=== PATIENT | male | born 1955 | race Caucasian/White ===

== ENCOUNTER 2019-01-05 11:01 | Observation (INO) | payer OTHER ==
[2019-01-05] MEDS ORDERED: Sodium Chloride 0.9% 10 ML Syringe FLUSH PRN (11:29)
[2019-01-05] MEDS ORDERED: Sodium Chloride 0.9% 1,000 ML IV ONE ×2 (11:33→12:58)
--- NOTE | 2019-01-05 11:57 | EDM.PDOC ---
ED HPI GENERAL MEDICAL PROBLEM - General Chief Complaint: Syncope Stated Complaint: LIGHTHEADED, BLANK LOOK Time Seen by Provider: 01/05/19 11:11 Source of Information: Reports: Patient History Limitations: Reports: No Limitations - History of Present Illness INITIAL COMMENTS - FREE TEXT/NARRATIVE: 63 y/o M with hx peripheral vascular disease s/p lower extremity arterial bypass a few months ago (outside hospital, patient doesn't know details) now on plavix, presents with dizziness. [place] fine yesterday. This morning while working had episode of feeling dizzy, looked pale to his co-worker, and near- syncope. He had about 3 similar episodes. He did not lose consciousness. He remembers the details. He still feels a bit lightheaded and unsteady on his feet. Took his usual meds today which include amlodipine 5mg, no additional anti -hypertensives. No diuretics. Denies vomiting/diarrhea, pain, headache, CP/SOB, lower extremity swelling. States he has had trouble with low blood pressure previously. - Related Data Allergies Allergy/AdvReac Type Severity Reaction Status Date / Time Penicillins Allergy Seizure Verified 01/05/19 11:18 simvastatin Allergy Rash Verified 01/05/19 11:18 Home Meds: Home Meds Acetaminophen [Pain Relief Extra Strength] 1,000 mg PO ASDIRECTED PRN 01/05/19 [ History] Aspirin [Halfprin] 81 mg PO DAILY 01/05/19 [History] Cholecalciferol (Vitamin D3) [Vitamin D3] 1,000 unit PO DAILY 01/05/19 [History] Clopidogrel [Plavix] 75 mg PO DAILY 01/05/19 [History] Diclofenac Sodium 1 applic TP QID PRN 01/05/19 [History] Meclizine [Antivert] 25 mg PO TID PRN 01/05/19 [History] Multivitamin with Minerals [Multiple Vitamin] 1 tab PO DAILY 01/05/19 [History] amLODIPine Besylate [Amlodipine Besylate] 5 mg PO DAILY 01/05/19 [History] atorvaSTATin Calcium [Atorvastatin Calcium] 40 mg PO BEDTIME 01/05/19 [History] Past Medical History Cardiovascular History: Reports: High Cholesterol, Hypertension, PVD - Past Surgical History Cardiovascular Surgical History: Reports: Vascular Surgery Neurological Surgical History: Reports: Lumbar Spine, Spinal Fusion Social & Family History - Tobacco Use Smoking Status *Q: Current Every Day Smoker Years of Tobacco use: 47 Packs/Tins Daily: 0.5 - Caffeine Use Caffeine Use: Reports: Coffee, Soda - Recreational Drug Use Recreational Drug Use: Yes Drug Use in Last 12 Months: Yes Recreational Drug Type: Reports: Marijuana/Hashish Recreational Drug Use Frequency: Rarely ED ROS GENERAL - Review of Systems Review Of Systems: See Below Constitutional: Denies: Fever HEENT: Reports: No Symptoms Respiratory: Denies: Shortness of Breath Cardiovascular: Denies: Chest Pain Endocrine: Reports: No Symptoms GI/Abdominal: Denies: Abdominal Pain : Reports: No Symptoms Musculoskeletal: Reports: No Symptoms Skin: Reports: No Symptoms Neurological: Reports: Dizziness Psychiatric: Reports: No Symptoms Hematologic/Lymphatic: Reports: No Symptoms ED EXAM, DIZZINESS - Physical Exam Exam: See Below Exam Limited By: No Limitations General Appearance: Alert, WD/WN, No Apparent Distress Eye Exam: Bilateral Eye: EOMI, Other (no nystagmus) Ears: Normal External Exam Nose: Normal Inspection Throat/Mouth: Normal Inspection, Normal Oropharynx, Normal Voice, No Airway Compromise Head Exam: Atraumatic, Normocephalic Neck: Normal Inspection Respiratory/Chest: No Respiratory Distress, Lungs Clear, Normal Breath Sounds Cardiovascular: Normal Peripheral Pulses, Regular Rate, Rhythm, No Edema, No Murmur GI/Abdominal: Normal Bowel Sounds, Soft, Non-Tender. No: Rebound Neurological: Alert, Normal Mood/Affect, Normal Dorsiflexion, CN II-XII Intact, Normal Plantar Flexion, Normal Gait, No Motor/Sensory Deficits, Oriented x 3 Extremities: Normal Inspection Psychiatric: Normal Affect, Normal Mood Skin Exam: Warm, Dry, Intact, Normal Color, No Rash Course - Vital Signs Last Recorded V/S: Last Vital Signs Temp 36.6 C 01/05/19 11:11 Pulse 57 L 01/05/19 12:00 Resp 18 01/05/19 12:00 BP 84/59 L 01/05/19 12:00 Pulse Ox 98 01/05/19 12:00 - Orders/Labs/Meds Orders: Active Orders 24 hr Category Date Time Status EKG 12 Lead [EKG Documentation Completion] [RC] STAT Care 01/05/19 11:53 Active Glucose [Blood Glucose Check, Bedside] [RC] ONETIME Care 01/05/19 11:22 Active Peripheral IV Care [RC] . DIRECTED Care 01/05/19 11:29 Active Peripheral IV Care [RC] . DIRECTED Care 01/05/19 11:29 Active Sodium Chloride 0.9% [Saline Flush] Med 01/05/19 11:29 Active 10 ml FLUSH ASDIRECTED PRN Peripheral IV Insertion Adult [OM.PC] Routine Oth 01/05/19 11:29 Ordered Medication Orders Sodium Chloride (Saline Flush) 10 ml FLUSH ASDIRECTED PRN PRN Reason: Keep Vein Open Last Admin: 01/05/19 12:00 Dose: 10 ml Labs: Laboratory Tests 01/05/19 01/05/19 01/05/19 Range/Units 12:12 12:12 12:12 WBC 13.91 H (4.23-9.07) K/mm3 RBC 4.31 L (4.63-6.08) M/mm3 Hgb 14.4 (13.7-17.5) gm/dl Hct 41.1 (40.1-51.0) % MCV 95.4 H (79.0-92.2) fl MCH 33.4 H (25.7-32.2) pg MCHC 35.0 (32.2-35.5) g/dl RDW Std Deviation 45.4 H (35.1-43.9) fL Plt Count 253 (163-337) K/mm3 MPV 8.9 L (9.4-12.3) fl Neut % (Auto) 80.5 H (34.0-67.9) % Lymph % (Auto) 9.1 L (21.8-53.1) % Chambers % (Auto) 9.6 (5.3-12.2) % Eos % (Auto) 0.6 L (0.8-7.0) Baso % (Auto) 0.2 (0.1-1.2) % Neut # (Auto) 11.20 H (1.78-5.38) K/mm3 Lymph # (Auto) 1.26 L (1.32-3.57) K/mm3 Chambers # (Auto) 1.33 H (0.30-0.82) K/mm3 Eos # (Auto) 0.09 (0.04-0.54) K/mm3 Baso # (Auto) 0.03 (0.01-0.08) K/mm3 Manual Slide Review Abnormal smear PT 10.6 (9.7-12.0) SECONDS INR 0.97 Sodium 138 (136-145) mEq/L Potassium 5.5 H (3.5-5.1) mEq/L Chloride 105 (98-107) mEq/L Carbon Dioxide 24 (21-32) mEq/L Anion Gap 14.5 (5-15) BUN 25 H (7-18) mg/dL Creatinine 1.8 H (0.7-1.3) mg/dL Est Cr Clr Drug Dosing 41.17 mL/min Estimated GFR (MDRD) 38 (>60) mL/min BUN/Creatinine Ratio 13.9 L (14-18) Glucose 83 (80-115) mg/dL POC Glucose (80-115) mg/dL Calcium 9.5 (8.5-10.1) mg/dL Magnesium 2.2 (1.8-2.4) mg/dl Total Bilirubin 0.3 (0.2-1.0) mg/dL AST 23 (15-37) U/L ALT 29 (16-63) U/L Alkaline Phosphatase 99 (46-116) U/L Troponin I < 0.017 (0.00-0.056) ng/mL Total Protein 7.2 (6.4-8.2) g/dl Albumin 3.8 (3.4-5.0) g/dl Globulin 3.4 gm/dL Albumin/Globulin Ratio 1.1 (1-2) Urine Color (Yellow) Urine Appearance (Clear) Urine pH (5.0-8.0) Ur Specific Sidney (1.005-1.030) Urine Protein (Negative) Urine Glucose (UA) (Negative) Urine Ketones (Negative) Urine Occult Blood (Negative) Urine Nitrite (Negative) Urine Bilirubin (Negative) Urine Urobilinogen (0.2-1.0) Ur Leukocyte Esterase (Negative) Urine RBC (0-5) /hpf Urine WBC (0-5) /hpf Ur Squamous Epith Cells (0-5) /hpf Urine Bacteria (FEW) /hpf Urine Mucus (FEW) /hpf 01/05/19 01/05/19 Range/Units 12:24 13:43 WBC (4.23-9.07) K/mm3 RBC (4.63-6.08) M/mm3 Hgb (13.7-17.5) gm/dl Hct (40.1-51.0) % MCV (79.0-92.2) fl MCH (25.7-32.2) pg MCHC (32.2-35.5) g/dl RDW Std Deviation (35.1-43.9) fL Plt Count (163-337) K/mm3 MPV (9.4-12.3) fl Neut % (Auto) (34.0-67.9) % Lymph % (Auto) (21.8-53.1) % Chambers % (Auto) (5.3-12.2) % Eos % (Auto) (0.8-7.0) Baso % (Auto) (0.1-1.2) % Neut # (Auto) (1.78-5.38) K/mm3 Lymph # (Auto) (1.32-3.57) K/mm3 Chambers # (Auto) (0.30-0.82) K/mm3 Eos # (Auto) (0.04-0.54) K/mm3 Baso # (Auto) (0.01-0.08) K/mm3 Manual Slide Review PT (9.7-12.0) SECONDS INR Sodium (136-145) mEq/L Potassium (3.5-5.1) mEq/L Chloride (98-107) mEq/L Carbon Dioxide (21-32) mEq/L Anion Gap (5-15) BUN (7-18) mg/dL Creatinine (0.7-1.3) mg/dL Est Cr Clr Drug Dosing mL/min Estimated GFR (MDRD) (>60) mL/min BUN/Creatinine Ratio (14-18) Glucose (80-115) mg/dL POC Glucose 76 L (80-115) mg/dL Calcium (8.5-10.1) mg/dL Magnesium (1.8-2.4) mg/dl Total Bilirubin (0.2-1.0) mg/dL AST (15-37) U/L ALT (16-63) U/L Alkaline Phosphatase (46-116) U/L Troponin I (0.00-0.056) ng/mL Total Protein (6.4-8.2) g/dl Albumin (3.4-5.0) g/dl Globulin gm/dL Albumin/Globulin Ratio (1-2) Urine Color Yellow (Yellow) Urine Appearance Clear (Clear) Urine pH 7.0 (5.0-8.0) Ur Specific Sidney 1.015 (1.005-1.030) Urine Protein Negative (Negative) Urine Glucose (UA) Negative (Negative) Urine Ketones Negative (Negative) Urine Occult Blood Negative (Negative) Urine Nitrite Negative (Negative) Urine Bilirubin Negative (Negative) Urine Urobilinogen 0.2 (0.2-1.0) Ur Leukocyte Esterase Negative (Negative) Urine RBC 0-5 (0-5) /hpf Urine WBC 0-5 (0-5) /hpf Ur Squamous Epith Cells 0-5 (0-5) /hpf Urine Bacteria Few (FEW) /hpf Urine Mucus Few (FEW) /hpf Meds: Medications Generic Name Dose Route Start Last Admin Trade Name Liz PRN Reason Stop Dose Admin Sodium Chloride 10 ml 01/05/19 11:29 01/05/19 12:00 Saline Flush FLUSH 10 ml ASDIRECTED PRN Administration Keep Vein Open Discontinued Medications Generic Name Dose Route Start Last Admin Trade Name Frejosef PRN Reason Stop Dose Admin Sodium Chloride 1,000 mls @ 1,000 mls/hr 01/05/19 11:33 01/05/19 12:00 Normal Saline IV 01/05/19 12:32 1,000 mls/hr ONETIME ONE Administration Sodium Chloride 1,000 mls @ 1,000 mls/hr 01/05/19 12:58 01/05/19 13:39 Normal Saline IV 01/05/19 13:57 1,000 mls/hr ONETIME ONE Administration - Re-Assessments/Exams Free Text/Narrative Re-Assessment/Exam: 01/05/19 11:56 EKG shows NSR, normal intervals, no evidence of acute ischemia or arrhythmia. BP 90's over 50's. Labs pending. CXR shows no acute abnormality. 01/05/19 14:13 Patient had persistently low BP for the first two hours of his ED stay with SBP as low as 84. Improved after 1.5 L NS to approx 100/58. He still feels generally poorly. Labs show LETA with Creatinine 1.8, unknown baseline. K+mildly elevated at 5.5. WBC elevated at 14. He has no signs or symptoms of infection and no fever or tachycardia. He may be overmedicated - however, given persistence of hypotension, presumably new renal insufficiency, will admit to obs. Discussed with Dr. Nava who will eval him for admission. 01/05/19 14:17 01/05/19 14:19 Departure - Departure Time of Disposition: 14:18 Disposition: Refer to Observation Clinical Impression: Pre-syncope, Renal insufficiency Hypotension Qualifiers: Hypotension type: other hypotension type Qualified Code(s): I95.89 - Other hypotension - Discharge Information Referrals: Pearl Schreiber MD [Primary Care Provider] - Forms: ED Department Discharge - My Orders Last 24 Hours: My Active Orders 01/05/19 11:22 Glucose [Blood Glucose Check, Bedside] [RC] ONETIME 01/05/19 11:29 Peripheral IV Care [RC] . DIRECTED Peripheral IV Care [RC] . DIRECTED Sodium Chloride 0.9% [Saline Flush] 10 ml FLUSH ASDIRECTED PRN Peripheral IV Insertion Adult [OM.PC] Routine 01/05/19 11:53 EKG 12 Lead [EKG Documentation Completion] [RC] STAT - Assessment/Plan Last 24 Hours: My Active Orders 01/05/19 11:22 Glucose [Blood Glucose Check, Bedside] [RC] ONETIME 01/05/19 11:29 Peripheral IV Care [RC] . DIRECTED Peripheral IV Care [RC] . DIRECTED Sodium Chloride 0.9% [Saline Flush] 10 ml FLUSH ASDIRECTED PRN Peripheral IV Insertion Adult [OM.PC] Routine 01/05/19 11:53 EKG 12 Lead [EKG Documentation Completion] [RC] STAT
--- NOTE | 2019-01-05 12:51 | CR ---
Chest: Two views of the chest were obtained. Comparison: Prior chest x-ray of 03/12/15. Heart size and mediastinum are normal. Lungs are clear with no acute parenchymal change. Bony structures appear within normal limits for the patient's age. Impression: 1. Nothing acute is appreciated on two-view chest x-ray. Diagnostic code #1
--- NOTE | 2019-01-05 16:31 | PCM.HP.2 ---
H&P History of Present Illness - General Date of Service: 01/05/19 Admit Problem/Dx: Admission Diagnosis/Problem Admission Diagnosis/Problem Pre-syncope - History of Present Illness Initial Comments - Free Text/Narative: This is a 63-year old male HTN and DLD who came to the ED for near syncopal episode. Was outside with a friend spreading gravel for approximately 1 hour, had a cigarrete, walked a couple of steps Lightheaded + sweating + cold+ clammy Sat down in front bumbper waiting for it to pass, 15 minutes later felt better, when he went to stand up felt the same way, total time 45 min-1hr. Was brought to the ED by , still feeling weak. This has not happened before, similar symptoms with adjustments of BP meds. Did not have breakfast today, no drink, not taken meds. Positive for hand shaking, cold and clammy. Denies chest pain, palpitations, shortness of breath, headaches, fall, LOC, incontinence bowel or urinary. Increased fatigue in the past couple of weeks. - Related Data Allergies/Adverse Reactions: Allergies Allergy/AdvReac Type Severity Reaction Status Date / Time Penicillins Allergy Seizure Verified 01/05/19 15:49 simvastatin Allergy Rash Verified 01/05/19 15:49 Home Medications: Home Meds Acetaminophen [Pain Relief Extra Strength] 1,000 mg PO ASDIRECTED PRN 01/05/19 [ History] Aspirin [Halfprin] 81 mg PO BEDTIME 01/05/19 [History] Cholecalciferol (Vitamin D3) [Vitamin D3] 1,000 unit PO DAILY 01/05/19 [History] Clopidogrel [Plavix] 75 mg PO DAILY 01/05/19 [History] Diclofenac Sodium 1 applic TP QID PRN 01/05/19 [History] Meclizine [Antivert] 25 mg PO TID PRN 01/05/19 [History] Multivitamin with Minerals [Multiple Vitamin] 1 tab PO DAILY 01/05/19 [History] amLODIPine Besylate [Amlodipine Besylate] 5 mg PO DAILY 01/05/19 [History] atorvaSTATin Calcium [Atorvastatin Calcium] 40 mg PO BEDTIME 01/05/19 [History] Past Medical History Cardiovascular History: Reports: High Cholesterol, Hypertension, PVD Respiratory History: Reports: Sleep Apnea Gastrointestinal History: Reports: Colon Polyp Genitourinary History: Reports: BPH Musculoskeletal History: Reports: Back Pain, Chronic, Osteoarthritis Neurological History: Reports: Vertigo - Past Surgical History Cardiovascular Surgical History: Reports: Vascular Surgery Neurological Surgical History: Reports: Lumbar Spine, Spinal Fusion Social & Family History - Tobacco Use Smoking Status *Q: Current Every Day Smoker Years of Tobacco use: 47 Packs/Tins Daily: 0.5 - Caffeine Use Caffeine Use: Reports: Coffee, Soda - Recreational Drug Use Recreational Drug Use: Yes Drug Use in Last 12 Months: Yes Recreational Drug Type: Reports: Marijuana/Hashish Recreational Drug Use Frequency: Rarely H&P Review of Systems - Review of Systems: Review Of Systems: See Below General: Reports: Weakness, Fatigue, Diaphoresis. Denies: Fever, Chills, Malaise, Decreased Appetite HEENT: Denies: Dysphasia, Eye Pain, Glasses, Hearing Changes, Rhinitis, Post Nasal Drip, Sinus Congestion, Sore Throat, Vertigo Pulmonary: Denies: Shortness of Breath, Wheezing, Cough, Sputum, Hemoptysis Cardiovascular: Reports: Lightheadedness. Denies: Chest Pain, Palpitations, Dyspnea on Exertion, Orthopnea, PND, Edema Gastrointestinal: Denies: Abdominal Pain, Anorexia, Constipation, Diarrhea, Decreased Appetite, Distension, Flatus, Hematemesis, Hematochezia Genitourinary: Denies: Dysuria, Frequency, Burning, Pain, Urgency Musculoskeletal: Denies: Neck Pain, Shoulder Pain, Arm Pain, Back Pain, Hand Pain, Leg Pain, Foot Pain, Muscle Pain Skin: Reports: Diaphoresis. Denies: Cyanosis, Jaundice, Mottled, Pallor Psychiatric: Denies: Confusion, Depression, Anxiety Neurological: Reports: Dizziness. Denies: Confusion, Headache, Numbness, Paresthesia, Seizure, Syncope Exam - Vital Signs Vital Signs: Last Vital Signs Temp 36.4 C 01/05/19 15:23 Pulse 61 01/05/19 15:23 Resp 16 01/05/19 15:23 BP 121/61 01/05/19 15:23 Pulse Ox 99 01/05/19 15:23 Weight: 90.718 kg - Patient Data Lab Results Last 24 hrs: Laboratory Results - last 24 hr 01/05/19 01/05/19 01/05/19 Range/Units 12:12 12:12 12:12 WBC 13.91 H (4.23-9.07) K/mm3 RBC 4.31 L (4.63-6.08) M/mm3 Hgb 14.4 (13.7-17.5) gm/dl Hct 41.1 (40.1-51.0) % MCV 95.4 H (79.0-92.2) fl MCH 33.4 H (25.7-32.2) pg MCHC 35.0 (32.2-35.5) g/dl RDW Std Deviation 45.4 H (35.1-43.9) fL Plt Count 253 (163-337) K/mm3 MPV 8.9 L (9.4-12.3) fl Neut % (Auto) 80.5 H (34.0-67.9) % Lymph % (Auto) 9.1 L (21.8-53.1) % Adams % (Auto) 9.6 (5.3-12.2) % Eos % (Auto) 0.6 L (0.8-7.0) Baso % (Auto) 0.2 (0.1-1.2) % Neut # (Auto) 11.20 H (1.78-5.38) K/mm3 Lymph # (Auto) 1.26 L (1.32-3.57) K/mm3 Adams # (Auto) 1.33 H (0.30-0.82) K/mm3 Eos # (Auto) 0.09 (0.04-0.54) K/mm3 Baso # (Auto) 0.03 (0.01-0.08) K/mm3 Manual Slide Review Abnormal smear PT 10.6 (9.7-12.0) SECONDS INR 0.97 Sodium 138 (136-145) mEq/L Potassium 5.5 H (3.5-5.1) mEq/L Chloride 105 (98-107) mEq/L Carbon Dioxide 24 (21-32) mEq/L Anion Gap 14.5 (5-15) BUN 25 H (7-18) mg/dL Creatinine 1.8 H (0.7-1.3) mg/dL Est Cr Clr Drug Dosing 41.17 mL/min Estimated GFR (MDRD) 38 (>60) mL/min BUN/Creatinine Ratio 13.9 L (14-18) Glucose 83 (80-115) mg/dL POC Glucose (80-115) mg/dL Calcium 9.5 (8.5-10.1) mg/dL Magnesium 2.2 (1.8-2.4) mg/dl Total Bilirubin 0.3 (0.2-1.0) mg/dL AST 23 (15-37) U/L ALT 29 (16-63) U/L Alkaline Phosphatase 99 (46-116) U/L Troponin I < 0.017 (0.00-0.056) ng/mL Total Protein 7.2 (6.4-8.2) g/dl Albumin 3.8 (3.4-5.0) g/dl Globulin 3.4 gm/dL Albumin/Globulin Ratio 1.1 (1-2) Urine Color (Yellow) Urine Appearance (Clear) Urine pH (5.0-8.0) Ur Specific [place] (1.005-1.030) Urine Protein (Negative) Urine Glucose (UA) (Negative) Urine Ketones (Negative) Urine Occult Blood (Negative) Urine Nitrite (Negative) Urine Bilirubin (Negative) Urine Urobilinogen (0.2-1.0) Ur Leukocyte Esterase (Negative) Urine RBC (0-5) /hpf Urine WBC (0-5) /hpf Ur Squamous Epith Cells (0-5) /hpf Urine Bacteria (FEW) /hpf Urine Mucus (FEW) /hpf 01/05/19 01/05/19 Range/Units 12:24 13:43 WBC (4.23-9.07) K/mm3 RBC (4.63-6.08) M/mm3 Hgb (13.7-17.5) gm/dl Hct (40.1-51.0) % MCV (79.0-92.2) fl MCH (25.7-32.2) pg MCHC (32.2-35.5) g/dl RDW Std Deviation (35.1-43.9) fL Plt Count (163-337) K/mm3 MPV (9.4-12.3) fl Neut % (Auto) (34.0-67.9) % Lymph % (Auto) (21.8-53.1) % Adams % (Auto) (5.3-12.2) % Eos % (Auto) (0.8-7.0) Baso % (Auto) (0.1-1.2) % Neut # (Auto) (1.78-5.38) K/mm3 Lymph # (Auto) (1.32-3.57) K/mm3 Adams # (Auto) (0.30-0.82) K/mm3 Eos # (Auto) (0.04-0.54) K/mm3 Baso # (Auto) (0.01-0.08) K/mm3 Manual Slide Review PT (9.7-12.0) SECONDS INR Sodium (136-145) mEq/L Potassium (3.5-5.1) mEq/L Chloride (98-107) mEq/L Carbon Dioxide (21-32) mEq/L Anion Gap (5-15) BUN (7-18) mg/dL Creatinine (0.7-1.3) mg/dL Est Cr Clr Drug Dosing mL/min Estimated GFR (MDRD) (>60) mL/min BUN/Creatinine Ratio (14-18) Glucose (80-115) mg/dL POC Glucose 76 L (80-115) mg/dL Calcium (8.5-10.1) mg/dL Magnesium (1.8-2.4) mg/dl Total Bilirubin (0.2-1.0) mg/dL AST (15-37) U/L ALT (16-63) U/L Alkaline Phosphatase (46-116) U/L Troponin I (0.00-0.056) ng/mL Total Protein (6.4-8.2) g/dl Albumin (3.4-5.0) g/dl Globulin gm/dL Albumin/Globulin Ratio (1-2) Urine Color Yellow (Yellow) Urine Appearance Clear (Clear) Urine pH 7.0 (5.0-8.0) Ur Specific [place] 1.015 (1.005-1.030) Urine Protein Negative (Negative) Urine Glucose (UA) Negative (Negative) Urine Ketones Negative (Negative) Urine Occult Blood Negative (Negative) Urine Nitrite Negative (Negative) Urine Bilirubin Negative (Negative) Urine Urobilinogen 0.2 (0.2-1.0) Ur Leukocyte Esterase Negative (Negative) Urine RBC 0-5 (0-5) /hpf Urine WBC 0-5 (0-5) /hpf Ur Squamous Epith Cells 0-5 (0-5) /hpf Urine Bacteria Few (FEW) /hpf Urine Mucus Few (FEW) /hpf Result Diagrams: 01/05/19 12:12 01/05/19 12:12 - Problem List (1) Pre-syncope SNOMED Code(s): 002789055 ICD Code: R55 - SYNCOPE AND COLLAPSE Status: Acute Current Visit: Yes (2) Hypotension SNOMED Code(s): 66828621 ICD Code: I95.9 - HYPOTENSION, UNSPECIFIED Status: Acute Current Visit: Yes Qualifiers: Hypotension type: other hypotension type Qualified Code(s): I95.89 - Other hypotension (3) Chronic kidney disease (CKD) stage G3a/A2, moderately decreased glomerular filtration rate (GFR) between 45-59 mL/min/1.73 square meter and albuminuria creatinine ratio between 30-299 mg/g SNOMED Code(s): 123924062, 556779935, 817452154 ICD Code: N18.3 - CHRONIC KIDNEY DISEASE, STAGE 3 (MODERATE) Status: Acute Current Visit: Yes (4) Peripheral vascular disease SNOMED Code(s): 887808448 ICD Code: I73.9 - PERIPHERAL VASCULAR DISEASE, UNSPECIFIED Status: Acute Current Visit: Yes (5) Hypertension SNOMED Code(s): 54291051 ICD Code: I10 - ESSENTIAL (PRIMARY) HYPERTENSION Status: Acute Current Visit: Yes Problem List Initiated/Reviewed/Updated: Yes Assessment/Plan Comment:: Pre-syncope in the setting of hypertension No recent change in medications Did not eat, drink or take his meds this am prior to doing strenuous activity after which he became symptomatic PLAN - Orthostatic VS - LR bolis 1L - LR maintenance at 250ml/hr - Urine electrolytes from initial urine sample Acute on chronic kidney disease, grade 3B Likely 2/2 volume depletion PLAN - FeNa from initial UA - LR bolus and maintenance - Hold home BP meds Peripheral vascular s/p angioplasty x 2 On clopidogrel and asa PLAN - Continue home medications CODE STATUS: FULL CODE PROPHYLAXIS: DVT- Lovenox GI-Not indicated DISPOSITION: Admitted for Volume repletion overnight, discharge likely in AM once IV fluids have been administered and patients ambulates and is asymptomatic
[2019-01-05] MEDS ORDERED: Lactated Ringers 1,000 ML IV ONE (20:19)
[2019-01-05] MEDS ORDERED: Aspirin 81 MG Tab.EC PO SCH (21:00)
[2019-01-05] MEDS ORDERED: Non-Formulary Medication 1 Each (Atorvastatin Calcium [Atorvastatin Calcium] 40 MG) PO SCH (21:00)
[2019-01-05] MEDS ORDERED: Aspirin 81 MG Tab.EC**OWN MED PO SCH (21:45)
[2019-01-05] MEDS ORDERED: ATORVASTATIN CALCIUM 80 MG PO SCH (21:45)
[2019-01-05] MEDS: Lactated Ringers 1,000 ML IV SCH (22:56)
[2019-01-06] MEDS: Lactated Ringers 1,000 ML IV SCH (03:20)
[2019-01-06] MEDS ORDERED: Multivitamins,Therapeutic Tab PO SCH (09:00)
[2019-01-06] MEDS ORDERED: Enoxaparin 40 MG/0.4 ML Syringe SUBCUT SCH (09:00)
[2019-01-06] MEDS ORDERED: Cholecalciferol (Vitamin D3) 25 MCG Tab PO SCH (09:00)
[2019-01-06] MEDS ORDERED: Clopidogrel 75 MG Tab **PTOM PO SCH (09:00)
[2019-01-06] MEDS ORDERED: Magnesium Oxide 400 MG Tab PO ONE (10:56)
[2019-01-06 16:58] VITALS: BP 131/69; PULSE 60
== END 2019-01-06 18:35 | disposition home or self-care (01) ==
LOC: JD.ED 11:01 → JD.MS 14:36
PROVIDERS: ADMIT Internal Medicine; ATTEND Internal Medicine
DX: R55 Syncope and collapse (principal); I95.9 Hypotension, unspecified; I12.9 Hypertensive chronic kidney disease with stage 1 through stage 4 chronic kidney disease, or unspecified chronic kidney disease; N18.3 Chronic kidney disease, stage 3 (moderate); I73.9 Peripheral vascular disease, unspecified; E78.00 Pure hypercholesterolemia, unspecified; M19.90 Unspecified osteoarthritis, unspecified site; F17.210 Nicotine dependence, cigarettes, uncomplicated; Z79.899 Other long term (current) drug therapy; Z79.82 Long term (current) use of aspirin; Z79.02 Long term (current) use of antithrombotics/antiplatelets; Z98.62 Peripheral vascular angioplasty status; Z88.8 Allergy status to other drugs, medicaments and biological substances; Z88.0 Allergy status to penicillin
CPT/HCPCS: 36415; 71046; 80048; 80053; 81001; 82570; 82962; 83036; 83735; 84100; 84156; 84300; 84443; 84484; 85025; 85027; 85610; 93005; 93306; 96360; 96361; 99285; A9270; J1650; J7040; J7120; 93010; 99283

== ENCOUNTER → 2020-06-06 | Day surgery (SDC) | payer OTHER ==
[~2020-06-06] MED LIST: Lactated Ringers 1,000 ML IV SCH; Lidocaine 1% 4 ML ONE; Lidocaine 1%/Sod Bicarbonate in NS 8.4% 1 ML Syringe IDERM PRN; Propofol 200 MG/20 ML SDV ONE; Sodium Chloride 0.9% 10 ML Syringe FLUSH PRN; fentaNYL 100 MCG/2 ML SDV ONE
--- NOTE | 2020-06-06 10:04 | PCM.PREANE ---
Preanesthetic Assessment - Procedure Proposed Procedure: Colonoscopy Diagnostic - Anesthesia/Transfusion/Family Hx Anesthesia History: Prior Anesthesia Without Reaction Family History of Anesthesia Reaction: No Transfusion History: No Prior Transfusion(s) - Review of Systems General: No Symptoms Pulmonary: Other (ALTAF unable to tolerate CPAP) Cardiovascular: No Symptoms (PVD/Vascular Bypass no problems since surgery. ) Gastrointestinal: No Symptoms Neurological: Dizziness (Vertigo), Pre-Existing Deficit (Chronic Back Pain, stiff today. ), Tingling (Right leg ) Other: Reports: Easy Bleeding, Easy Bruising (Anticoagulated, Plavix held x 7 days. ) - Physical Assessment NPO Status Date: 06/05/20 NPO Status Time: 20:00 Vital Signs: 97.5 136/84 96 16 96% Weight: 92.5 kg ASA Class: 2 Mental Status: Alert & Oriented x3 Airway Class: Mallampati = 3 Dentition: Reports: Missing Tooth/Teeth Thyro-Mental Finger Breadths: 3 Mouth Opening Finger Breadths: 3 ROM/Head Extension: Full Lungs: Clear to Auscultation, Normal Respiratory Effort Cardiovascular: Regular Rate, Regular Rhythm - Allergies Allergies/Adverse Reactions: Allergies Allergy/AdvReac Type Severity Reaction Status Date / Time Kutxibn-Dgy-Gni Reductase Allergy Muscle Verified 06/05/20 09:21 Inhibitor Aches Penicillins AdvReac Seizure Verified 06/05/20 09:21 - Acknowledgements Anesthesia Type Planned: MAC Pt an Appropriate Candidate for the Planned Anesthesia: Yes Alternatives and Risks of Anesthesia Discussed w Pt/Guardian: Yes Pt/Guardian Understands and Agrees with Anesthesia Plan: Yes PreAnesthesia Questionnaire HEENT History: Reports: Hard of Hearing Other HEENT History: Glasses Cardiovascular History: Reports: High Cholesterol, Hypertension, PVD, Other (See Below) Other Cardiovascular History: lower limb ischemia Respiratory History: Reports: Sleep Apnea Other Respiratory History: Own a CPAP but doesn't use it currently Gastrointestinal History: Reports: Colon Polyp Genitourinary History: Reports: BPH, Other (See Below) Other Genitourinary History: erectile dysfunction CHIEF NURSE EXECUTIVE History: Reports: None Musculoskeletal History: Reports: Osteoarthritis Other Musculoskeletal History: fatigue after too much walking due to bypass in femoral arteries. Neurological History: Reports: Migraines, Vertigo Other Neuro History: Spring 2018 - unsure what it was attributed it to. Psychiatric History: Reports: None Endocrine/Metabolic History: Reports: Obesity/BMI 30+ Hematologic History: Reports: None Immunologic History: Reports: None Oncologic (Cancer) History: Reports: None Dermatologic History: Reports: None - Infectious Disease History Infectious Disease History: Reports: None - Past Surgical History Head Surgeries/Procedures: Reports: None HEENT Surgical History: Reports: None Cardiovascular Surgical History: Reports: Carotid Endarterectomy, Coronary Artery Bypass, Other (See Below) Other Cardiovascular Surgeries/Procedures: rigt iliac artery repair Respiratory Surgical History: Reports: None GI Surgical History: Reports: None Female Surgical History: Reports: None Male Surgical History: Reports: None Endocrine Surgical History: Reports: None Neurological Surgical History: Reports: Other (See Below) Other Neurological Surgeries/Procedures: spine surgery Musculoskeletal Surgical History: Reports: Arthroscopic Knee Oncologic Surgical History: Reports: None Dermatological Surgical History: Reports: None - SUBSTANCE USE Tobacco Use Status *Q: Former Tobacco User Recreational Drug Use History: No - HOME MEDS Home Medications: Home Meds Aspirin [Halfprin] 81 mg PO BEDTIME 01/05/19 [History] Cholecalciferol (Vitamin D3) [Vitamin D3] 1,000 unit PO DAILY 01/05/19 [History] Clopidogrel [Plavix] 75 mg PO DAILY 01/05/19 [History] Multivitamin with Minerals [Multiple Vitamin] 1 tab PO DAILY 01/05/19 [History] Cyanocobalamin (Vitamin B-12) [Vitamin B-12] 1,000 mcg PO DAILY 06/05/20 [History] Meclizine [Antivert] 25 mg PO Q4H PRN 06/05/20 [History] Propranolol [Inderal] 20 mg PO BID 06/05/20 [History] Rosuvastatin Calcium [Crestor] 40 mg PO DAILY 06/05/20 [History] lisinopriL [Lisinopril] 40 mg PO DAILY 06/05/20 [History] - CURRENT (IN HOUSE) MEDS Current Meds: Current Medications Lactated Ringer's (Ringers, Lactated) 1,000 mls @ 125 mls/hr IV ASDIRECTED VIMAL Stop: 06/06/20 23:00 Lidocaine/Sodium Bicarbonate (Buffered Lidocaine 1% In Ns 8.4%) 0.25 ml IDERM ONETIME PRN PRN Reason: Prior to IV Start Stop: 06/06/20 18:00 Sodium Chloride (Saline Flush) 10 ml FLUSH ASDIRECTED PRN PRN Reason: Keep Vein Open Stop: 06/06/20 18:00
--- NOTE | 2020-06-06 12:50 | PROC ---
DATE OF OPERATION: 06/06/2020 SURGEON: Sharyn Yao MD PREOPERATIVE DIAGNOSIS: Prior history of colon polyps. POSTOPERATIVE DIAGNOSIS: Multiple colon polyps. PROCEDURES: Colonoscopy. ANESTHESIA: Monitored anesthesia care. COMPLICATIONS: None. INDICATION AND CONSENT: The patient is a 65-year-old male, who has history of multiple colonic polyps. Last colonoscopy was in 2017 and found 13 polyps. The patient is due for another colonoscopy in 3 years, but was not able to get it done until now. Came to my office. We discussed the procedure. He was a good candidate. Informed consent was obtained after detailed discussion about the procedure. DETAILS OF PROCEDURE: The patient was taken to the procedure room, placed in left lateral decubitus position. A time-out was performed and monitored anesthesia care was induced. We began with a perianal exam. There were hemorrhoids and there was a small fissure in the posterior anal opening. Digital rectal exam was normal. We placed a colonoscope down through the anus all the way to the cecum. At the proximal ascending colon, there were 5 different colon polyps ranging from 2 mm to 6 mm. Two of these polyps were removed with a hot snare and the rest were removed with jumbo forceps. EBL was minimal. In the proximal transverse colon, there were two colonic polyps that were 3 mm, both were removed with jumbo forceps. In the splenic flexure there were two 2 to 3 mm polyps that were removed with Jumbo forceps. In the sigmoid colon, there were four polyps again that were 2 to 4 mm. These were removed with Jumbo forceps. In the rectosigmoid, there were four polyps that were removed with Jumbo forceps. On retroflexion, there were no other abnormalities other than grade 2 hemorrhoids. At this point, we reinserted the colonoscope back to the ascending colon. Air was suctioned out and the procedure was concluded. In total, the patient had about 17 small to medium sized colonic polyps. We removed these polyps and sent them for pathologic exam. The patient should have another colonoscopy in 3 years pending final pathology. MMPREET /[id number] MTDDarrel
--- NOTE | 2020-06-06 13:37 | PCM48HPAN ---
Post Anesthesia Note - EVALUATION WITHIN 48HRS OF ANESTHETIC Vital Signs in Normal Range: Yes Patient Participated in Evaluation: Yes Respiratory Function Stable: Yes Airway Patent: Yes Cardiovascular Function Stable: Yes Hydration Status Stable: Yes Pain Control Satisfactory: Yes Nausea and Vomiting Control Satisfactory: Yes Mental Status Recovered: Yes Vital Signs: Last Vital Signs Temp 99.4 F 06/06/20 12:10 Pulse 74 06/06/20 12:10 Resp 20 06/06/20 12:10 BP 89/50 L 06/06/20 12:10 Pulse Ox 99 06/06/20 12:10
[2020-06-06 14:06] VITALS: BP 114/74; PULSE 64
== END | disposition home or self-care (01) ==
LOC: JD.SDS 09:04
PROVIDERS: ATTEND Surgery
DX: Z12.11 Encounter for screening for malignant neoplasm of colon (principal); D12.2 Benign neoplasm of ascending colon; D12.3 Benign neoplasm of transverse colon; D12.5 Benign neoplasm of sigmoid colon; K64.9 Unspecified hemorrhoids; G47.33 Obstructive sleep apnea (adult) (pediatric); I73.9 Peripheral vascular disease, unspecified; I10 Essential (primary) hypertension; F17.210 Nicotine dependence, cigarettes, uncomplicated; E78.2 Mixed hyperlipidemia; Z98.890 Other specified postprocedural states; Z79.899 Other long term (current) drug therapy; Z79.82 Long term (current) use of aspirin; Z88.0 Allergy status to penicillin; Z88.8 Allergy status to other drugs, medicaments and biological substances
CPT/HCPCS: 45380; 45385; 88305; J2370; J2704; J3010; J7120; 00811

== ENCOUNTER 2021-05-22 06:49 | Day surgery (SDC) | payer OTHER ==
[~2021-05-22 06:49] MED LIST changes: -Lidocaine 1% 4 ML ONE; -Propofol 200 MG/20 ML SDV ONE; +Sodium Chloride 0.9% 10 ML Syringe FLUSH SCH; -fentaNYL 100 MCG/2 ML SDV ONE
[2021-05-22] MEDS ORDERED: Propofol 200 MG/20 ML SDV ONE ×2 (07:24→08:20)
[2021-05-22] MEDS ORDERED: Lidocaine 1% 4 ML ONE (07:25)
[2021-05-22 10:18] VITALS: BP 119/78; PULSE 72
== END 2021-05-22 10:13 | disposition home or self-care (01) ==
LOC: JD.SDS 06:49
PROVIDERS: ATTEND Surgery
DX: D12.0 Benign neoplasm of cecum (principal); D12.5 Benign neoplasm of sigmoid colon; K62.1 Rectal polyp; K31.89 Other diseases of stomach and duodenum; D12.4 Benign neoplasm of descending colon; K57.30 Diverticulosis of large intestine without perforation or abscess without bleeding; K64.2 Third degree hemorrhoids; K52.9 Noninfective gastroenteritis and colitis, unspecified; K44.9 Diaphragmatic hernia without obstruction or gangrene; K20.90 Esophagitis, unspecified without bleeding; K29.70 Gastritis, unspecified, without bleeding; N40.0 Benign prostatic hyperplasia without lower urinary tract symptoms; I10 Essential (primary) hypertension; E78.2 Mixed hyperlipidemia; E66.9 Obesity, unspecified; G47.33 Obstructive sleep apnea (adult) (pediatric); Z98.890 Other specified postprocedural states; Z79.899 Other long term (current) drug therapy; Z79.82 Long term (current) use of aspirin; Z87.891 Personal history of nicotine dependence; Z88.0 Allergy status to penicillin; Z88.8 Allergy status to other drugs, medicaments and biological substances
CPT/HCPCS: 00813; J2704; J7120

== ENCOUNTER 2024-07-08 10:37 | Day surgery (SDC) | payer OTHER ==
[~2024-07-08 10:37] MED LIST changes: -Lactated Ringers 1,000 ML IV SCH; -Lidocaine 1%/Sod Bicarbonate in NS 8.4% 1 ML Syringe IDERM PRN
[2024-07-08] MEDS: Lactated Ringers 1,000 ML IV SCH (11:18)
[2024-07-08] MEDS ORDERED: Albuterol/Ipratropium 3.0-0.5 MG/3 ML Neb Soln ONE (11:31)
[2024-07-08] MEDS: Albuterol/Ipratropium 3.0-0.5 MG/3 ML Neb Soln NEB ONE (11:34)
[2024-07-08] MEDS ORDERED: propofoL 500 MG/50 ML 50 ML ONE (11:46)
[2024-07-08] MEDS ORDERED: Lidocaine 2% 5 ML SDV ONE (11:52)
[2024-07-08 14:05] VITALS: BP 132/78; PULSE 82
== END 2024-07-08 13:05 | disposition home or self-care (01) ==
LOC: JD.SDS 10:37
PROVIDERS: ATTEND Surgery
DX: D12.0 Benign neoplasm of cecum (principal); D12.3 Benign neoplasm of transverse colon; D12.4 Benign neoplasm of descending colon; D12.5 Benign neoplasm of sigmoid colon; K57.30 Diverticulosis of large intestine without perforation or abscess without bleeding; Z86.0101 Personal history of adenomatous and serrated colon polyps; E78.2 Mixed hyperlipidemia; I10 Essential (primary) hypertension; Z87.891 Personal history of nicotine dependence; Z79.899 Other long term (current) drug therapy; Z88.0 Allergy status to penicillin; Z88.8 Allergy status to other drugs, medicaments and biological substances
CPT/HCPCS: 45380; J2003; J2704; J7120; J7620; 00811; A9270-GY